=== PATIENT | female | born 1990 | race Asian ===

== ENCOUNTER 2016-05-04 10:20 | Outpatient (CLI) | payer OTHER, MEDICAID ==
[~2016-05-04] VITALS: Ht 175.3 cm; Wt 74.7 kg
[2016-05-04] MEDS ORDERED: PRENAT PO (10:33)
[2016-05-04 10:34] VITALS: Ht 175.3 cm; Wt 74.7 kg
[2016-05-04 10:35] VITALS: BP 108/54; PULSE 67; RESP 18
[2016-05-04] MEDS ORDERED: LACTATED RINGER'S 1,000 ML IV SCH (12:30)
--- NOTE | 2016-05-04 16:22 | RADRPT ---
AMENDMENT: 05/04/2016 5:01:40 PM Alexandr Montiel M.D. Amniotic fluid volume measurements made was a single vertical pocket measuring 6.1 cm. Impression: 1. Single vertical pocket of amniotic fluid measuring 6.1 cm. PROCEDURE: Limited OB ultrasound. CLINICAL INDICATION: Amniotic fluid volume. TECHNIQUE: Sonographic evaluation to assess the amniotic fluid volume was performed. Transabdomin al imaging of the gravid uterus was performed. COMPARISON: None FINDINGS: Single live intrauterine with cardiac activity is identified. The amniotic fluid in dex equals 6.1 cm. Breech presentation. Heart rate 156 beats per minute. Fundal grade 1 placenta. IMPRESSION: 1. Amniotic fluid index equals 6.1 cm. RPTAT: JJ .Alexandr Montiel MD, Date Time Electronically viewed and signed by .Alexandr Montiel MD, on 05/04/2016 17:01 .L/
--- NOTE | 2016-05-04 17:28 | PN ---
Date/Time of Note Date/Time of Note DATE: 05/04/16 TIME: 17:23 OB Subjective Subjective Subjective May 04, 2016 This is a consultation report on Katie Gray : This patient is a 26 years old 2 para 1 with due date of August 29, 2016, which makes her 23 weeks and 4 days. She was referred here from the perinatology clinic to rule out possible premature rupture of membrane and due to low JOSUÉ. On examination : Ear nose throat, neck ,abdomen, all appears to be normal. Fundus measures about 23 cm,. heart tone is normal ,no evidence of any contractions. The SHRM test was negative. Nitrazine test also was negative. Her vital signs are within normal limites; blood pressure was 108/54 ,pulse rate 67, respiration 18, and temperature 93.3 with 98% saturation. The ultrasound gave the JOSUÉ of 6.1 MVP. Disposition: These findings were discussed with the patient and she will be discharged to be followed in perinatology clinic Again we instructed her to increase fluid intake . I any evidence of labor, pain, bleeding ,or excessive vaginal discharge to return to the triage area . Laboratory Tests Test 05/04/16 11:00 Membranes Rupture NEGATIVE Current Medications Medications (Trade) Dose Ordered Sig/Kevon Route PRN Reason Start Time Stop Time Status Last Admin Dose Admin Lactated Ringer's (Lr) 1,000 ml @ 250 mls/hr Q4H IV 05/04/16 12:30 05/04/16 12:24 Patient patient will be followed next week in the perinatology to measure her JOSUÉ again TERE RUELAS MD May 04, 2016 17:28
== END 2016-05-04 17:29 | disposition home or self-care (01) ==
LOC: OBT 10:20 → L-D 10:21 → OBT 17:29
PROVIDERS: ATTEND Obstetrics & Gynecology
DX: O26.892 Other specified pregnancy related conditions, second trimester (principal); Z3A.23 23 weeks gestation of pregnancy
CPT/HCPCS: 36415; 76815; 84112; 96360; 96361; G0463; J7120